=== PATIENT | male | born 1990 | race African-American/Black ===

== ENCOUNTER 2016-09-04 17:52 | Emergency (ER) | payer SELFPAY ==
[~2016-09-04] VITALS: Ht 180.3 cm; Wt 78.7 kg
[2016-09-04 23:14] VITALS: BP 125/76
== END 2016-09-04 23:18 | disposition home or self-care (01) ==
LOC: EME 17:52
PROC: 0HQ1XZZ Repair Face Skin, External Approach (ICD-10-PCS; principal; 2016-09-04)
DX: S01.81XA Laceration without foreign body of other part of head, initial encounter (principal); S00.83XA Contusion of other part of head, initial encounter; X99.0XXA Assault by sharp glass, initial encounter; F17.200 Nicotine dependence, unspecified, uncomplicated
CPT/HCPCS: 70450; 70480; 99281; 99283

== ENCOUNTER 2016-09-20 09:58 | Emergency (ER) | payer SELFPAY ==
[~2016-09-20] VITALS: Ht 180.3 cm; Wt 79.3 kg
[2016-09-20 11:13] VITALS: BP 128/72
== END 2016-09-20 11:24 | disposition home or self-care (01) ==
LOC: EXP 09:58 → EME 09:58 → EXP 11:24
DX: S01.81XD Laceration without foreign body of other part of head, subsequent encounter (principal); F17.200 Nicotine dependence, unspecified, uncomplicated
CPT/HCPCS: 99281; 99283